=== PATIENT | female | born 1975 | race African-American/Black ===

== ENCOUNTER 2022-11-05 16:20 | Inpatient (IN) ==
[2022-11-05] MEDS ORDERED: NS 1,000 ML IV 1,000 ML ONE (16:24)
[2022-11-05] MEDS ORDERED: ZOFRAN INJ 4 MG VIAL ONE ×2 (16:37→17:23)
[2022-11-05] MEDS ORDERED: NS 1,000 ML IV 1,000 ML IV ONE (16:43)
--- NOTE | 2022-11-05 16:45 | DR.NAUSEAF ---
HPI Time Seen Time Seen by Provider: 11/05/22 16:44 Primary Care Physician Primary Care Physician: Kevin Peña Chief Complaint Doctors Comments: 47 y/o female brought in by EMS for evaluation. Having right sided abdominal pain over the past few days, worsening. Pain os sharp, located R abdomen, does not radiate. Associated with nausea and vomiting today. Denies fever, but has been hot/cold at times. No URI symptoms. Having constipation, decreased urination. Distant h/o cholecystectomy, gastric bypass in the past. Chief Complaint:: pt presents to the ED via EMS with c/o right sided abdominal pain that started this morning. Pt reports assoicated vomiting that only started a few hours ago. Pt denies any fever or diarrhea. Source History Provided: Patient and EMS Mode of Arrival Mode of Arrival: EMS Timing Onset of Chief Complaint: 11/05/22 PMH PMH Past Medical History: Yes Past Medical History: Hypertension Past Medical History Comment: Chronic back pain Past Surgical History: Yes Surgical History: and Cholecystectomy Family History History of Family Medical Conditions: Yes Family Medical History: Coronary Artery Disease and Hypertension Social History Does any household member use tobacco: No Do you use any recreational Drugs:: No Lives With: Family Lives Where: Home Infectious screening In the last 2 months have you had wt loss of >10#?: NO Have you had fever, night sweats or hemotysis?: No Have you traveled outside the country in the last 6 months?: No Isolation: Standard ROS Review of Systems Constitutional: No Symptoms Reported Eyes: No Symptoms Reported ENTM: No Symptoms Reported Respiratoy: No Symptoms Reported Cardiovascular: No Symptoms Reported Gastrointestinal/Abdominal: See HPI Genitourinary: No Symptoms Reported Neurological: No Symptoms Reported Musculoskeletal: No Symptoms Reported Integumentary: No Symptoms Reported Psychiatric: No Symptoms Reported All Other Systems: Reviewed and Negative PE Vital Signs Vitals: Temperature 98.7 F Pulse Rate 69 Respiratory Rate 18 Blood Pressure [Left Arm] 157/89 Blood Pressure 138/85 O2 Sat by Pulse Oximetry 100 General General Appearance: Alert and In No Apparent Distress Eyes Eye exam: PERRL and EOMI ENT ENT Exam: Mucous Membranes Moist Neck Neck Exam: Normal Inspection Respiratory Respiratory Exam: Normal Lung Sounds Bilat; negative Accessory Muscle Use or Respiratory Distress Cardiovascular Cardiovascular Exam: Regular Rate, Normal Rhythm and Normal Heart Sounds Abdominal Exam Abdominal Exam: Normal Bowel Sounds, Soft and Tenderness (epigastric > RUQ, no guarding or rebound ) Extremities Extremities Exam: Normal Inspection; negative Edema Neurologic Neurological Exam: Alert, Oriented X3 and CN II-XII Intact; negative Motor Sensory Deficit Skin Skin Exam: Warm and Dry COURSE Treatment Treatment: Pt with few days of abdominal pain, now with N/V. W/u initiated. Pt given IV fluids, IV zofran. + h/o chronic narcotic therapy for LBP, no pain meds today, Given IV dilaudid. + N/V persisting. Pt given additional IV zofran, plus IV protonix, and additional IV dilaudid. Will pursue a CT of the abd/pelvis. 1828 - persistant vomiting. Given IM phenergan. NG tube placed. CT of the abd/pelvis with changes c/w intussusception of the small bowel, and a partial small bowel obstruction. Recommend admission for further treatment. Consulted with surgery, Dr Wilson, for evaluation. Discussedwith Dr Hernandez, accepts the admission for Dr Brown. ROR Labs Reviewed Result Diagrams: 11/05/22 17:17 11/05/22 17:17 Laboratory: WBC 9.6 X10^3/uL (3.6-10.0) 11/05/22 17:17 RBC 4.54 X10^6/uL (3.5-5.4) 11/05/22 17:17 Hgb 12.4 g/dL (12.0-16.0) 11/05/22 17:17 Hct 38.1 % (36.0-47.0) 11/05/22 17:17 MCV 83.9 fL (80.0-100.0) 11/05/22 17:17 MCH 27.2 pg (27.0-34.0) 11/05/22 17:17 MCHC 32.5 g/dL (33.0-35.0) L 11/05/22 17:17 RDW 15.7 % (11.6-16.5) 11/05/22 17:17 Plt Count 235 X10^3/uL (150.0-450.0) 11/05/22 17:17 MPV 7.8 fL (7.4-11.0) 11/05/22 17:17 Neut % (Auto) 72.4 % (42.0-75.0) 11/05/22 17:17 Lymph % (Auto) 17.5 % (21.0-51.0) L 11/05/22 17:17 Andrew % (Auto) 7.7 % (0.0-13.0) 11/05/22 17:17 Eos % (Auto) 1.5 % (0.9-2.9) 11/05/22 17:17 Baso % (Auto) 0.9 % (0.2-1.0) 11/05/22 17:17 Neut # (Auto) 6.9 x10^3/uL (2.2-4.8) H 11/05/22 17:17 Lymph # (Auto) 1.7 X10^3/uL (1.3-2.9) 11/05/22 17:17 Andrew # (Auto) 0.7 x10^3/uL (0.3-0.8) 11/05/22 17:17 Eos # (Auto) 0.1 x10^3/uL (0.0-0.2) 11/05/22 17:17 Baso # (Auto) 0.1 X10^3/uL (0.0-0.1) 11/05/22 17:17 Absolute Nucleated RBC 0.1 /100WBC 11/05/22 17:17 Sodium 142 mmol/L (136-145) 11/05/22 17:17 Corrected Sodium TNP 11/05/22 17:17 Potassium 3.7 mmol/L (3.5-5.1) 11/05/22 17:17 Chloride 105 mmol/L (98-107) 11/05/22 17:17 Carbon Dioxide 27.4 mmol/L (21-32) 11/05/22 17:17 BUN 9 mg/dL (7-18) 11/05/22 17:17 Creatinine 0.81 mg/dL (0.55-1.02) 11/05/22 17:17 Est GFR (MDRD) Af Amer > 60 (>60) 11/05/22 17:17 Est GFR (MDRD) Non-Af > 60 (>60) 11/05/22 17:17 Glucose 87 mg/dL (65-99) 11/05/22 17:17 Calcium 9.0 mg/dL (8.5-10.1) 11/05/22 17:17 Corrected Calcium TNP 11/05/22 17:17 Total Bilirubin 0.10 mg/dL (0.2-1.0) L 11/05/22 17:17 AST 24 Units/L (15-37) 11/05/22 17:17 ALT 32 Units/L (12-78) 11/05/22 17:17 Alkaline Phosphatase 154 Units/L (46-116) H 11/05/22 17:17 Total Protein 6.6 g/dL (6.4-8.2) 11/05/22 17:17 Albumin 3.8 g/dL (3.4-5.0) 11/05/22 17:17 Globulin 2.8 g/dL (2.5-4.5) 11/05/22 17:17 Albumin/Globulin Ratio 1.4 Ratio (1.1-2.1) 11/05/22 17:17 Lipase 54 Units/L (73-393) L 11/05/22 17:17 Opioid Opioid Risk Tool Age (João box if 16-45): No History of Preadolescent Sexual Abuse: No Total: 0 Total Score Risk Category: Low Risk Copyright: Jacky BARNES predicting aberrant behaviors Discharge Plan Diagnosis Discharge Problem: Intussusception, Small bowel obstruction, partial Discharge Plan Patient Disposition: 09 ADMITTED INPATIENT Condition: Stable Orders to Discharge Patient Discharge Orders: Transfer (Routine); Ordered 11/05/22 Ordered By: Richi Graf
[2022-11-05] MEDS ORDERED: ZOFRAN INJ 4 MG VIAL IVP ONE ×2 (16:46→17:22)
[2022-11-05] MEDS ORDERED: DILAUDID INJ IVP ONE ×2 (16:50→17:35)
[2022-11-05] MEDS ORDERED: DILAUDID INJ ONE ×2 (16:53→17:36)
[2022-11-05] MEDS ORDERED: PROTONIX INJ 40 MG VIAL IVP ONE (17:22)
[2022-11-05] MEDS ORDERED: PROTONIX INJ 40 MG VIAL ONE (17:23)
[2022-11-05 17:27] LABS: BASOPHILS # (AUTO) 0.1 X10^3/uL (0.0-0.1); BASOPHILS % (AUTO) 0.9 % (0.2-1.0); EOSINOPHILS # (AUTO) 0.1 x10^3/uL (0.0-0.2); EOSINOPHILS % (AUTO) 1.5 % (0.9-2.9); HEMATOCRIT 38.1 % (36.0-47.0); HEMOGLOBIN 12.4 g/dL (12.0-16.0); LYMPHOCYTES # (AUTO) 1.7 X10^3/uL (1.3-2.9); LYMPHOCYTES % (AUTO) 17.5 % (21.0-51.0); MEAN CORPUSCULAR HEMOGLOBIN 27.2 pg (27.0-34.0); MEAN CORPUSCULAR HGB CONC 32.5 g/dL (33.0-35.0); MEAN CORPUSCULAR VOLUME 83.9 fL (80.0-100.0); MEAN PLATELET VOLUME 7.8 fL (7.4-11.0); MONOCYTES # (AUTO) 0.7 x10^3/uL (0.3-0.8); MONOCYTES % (AUTO) 7.7 % (0.0-13.0); NEUTROPHILS # (AUTO) 6.9 x10^3/uL (2.2-4.8); NEUTROPHILS % (AUTO) 72.4 % (42.0-75.0); RED BLOOD COUNT 4.54 X10^6/uL (3.5-5.4); RED CELL DISTRIBUTION WIDTH 15.7 % (11.6-16.5); WHITE BLOOD COUNT 9.6 X10^3/uL (3.6-10.0)
[2022-11-05 17:37] LABS: ALANINE AMINOTRANSFERASE 32 Units/L (12-78); ALBUMIN 3.8 g/dL (3.4-5.0); ALKALINE PHOSPHATASE 154 Units/L (46-116); ASPARTATE AMINO TRANSFERASE 24 Units/L (15-37); BLOOD UREA NITROGEN 9 mg/dL (7-18); CARBON DIOXIDE 27.4 mmol/L (21-32); CHLORIDE 105 mmol/L (98-107); CREATININE 0.81 mg/dL (0.55-1.02); LIPASE 54 Units/L (73-393); SODIUM 142 mmol/L (136-145); TOTAL PROTEIN 6.6 g/dL (6.4-8.2); eGFR NON BLACK RACES > 60 (>60)
[2022-11-05] MEDS ORDERED: PHENERGAN INJ 25 MG IM ONE ×2 (18:16)
--- NOTE | 2022-11-05 18:37 | CT ---
HISTORYABDOMINAL PAIN [id number]/PELVIS W/O CONCOMPARISONTECHNIQUEMultiple axial images of the abdomen and pelvis were obtained from the lung bases to the pubic symphysis without the administration of IV contrast. Dose reduction techniques including Automated Exposure Control (AEC) and adjustment of mA and kV were utilized.FINDINGSThe lung bases are clear without effusion. The heart size is normal. The liver is grossly normal. The gallbladder has been removed. The pancreas is atrophic. The spleen is normal. There is no adrenal mass. The kidneys are both normal in size without stone or hydronephrosis. There is postsurgical change in the stomach compatible with a gastric bypass. The afferent small-bowel loop passes anterior to the transverse colon. There is a nonspecific but abnormal appearance to the small bowel suggestive of a intussusception into the dilated loop where the small bowel to small bowel anastomosis occurs. The small bowel is otherwise unremarkable. The appendix is normal. There is stool in the unremarkable large bowel. Urinary bladder and uterus are normal and there is no adnexal mass. There is multilevel disc and facet degeneration. There is also fairly severe hip degeneration.IMPRESSIONAbnormal bowel gas pattern suggestive of intussusception related to the small bowel to small bowel anastomosis which is dilated and allows the intussusception. This may cause some degree of obstruction although the GI tract appears to be relatively decompressed at this time. A small-bowel follow-through may be beneficial.Electronically signed by: Bertrand Martell (Nov 05, 2022 18:36:12)
[2022-11-05] MEDS ORDERED: APRESOLINE INJ 20 MG VIAL IVP ONE (19:25)
[2022-11-05] MEDS ORDERED: APRESOLINE INJ 20 MG VIAL ONE (19:26)
--- NOTE | 2022-11-05 19:32 | RAD ---
EXAM: ABDOMEN X-RAY (or KUB)HISTORY: Nasogastric tube verification status post placement.TECHNIQUE: Supine viewCOMPARISON: None.FINDINGS:Nasogastric tube is noted with the distal tip within the lateral aspect of the proximal to middle of the stomach, approximately 11 cm distal to the gastroesophageal junction, with the proximal sidehole approximately 2 cm distal to the gastroesophageal junction (adequate position).Abundant fecal material is seen within the large bowel loops; nonspecific finding; rule out constipation. The bowel gas pattern is otherwise nonspecific and nonobstructive. There is no gross organomegaly, free intraperitoneal air, or suspicious calcifications seen. The visualized bony structures are within normal limits.IMPRESSION:1. Nasogastric tube is noted with the distal tip within the lateral aspect of the proximal to middle of the stomach, approximately 11 cm distal to the gastroesophageal junction, with the proximal sidehole approximately 2 cm distal to the gastroesophageal junction (adequate position).2. Abundant fecal material is seen within the large bowel loops; nonspecific finding; rule out constipation.Electronically signed by: Gatito Goss (Nov 05, 2022 19:31:31)
[2022-11-05 19:37] LABS: BILIRUBIN,URINE NEGATIVE (NEGATIVE); BLOOD/HEMOGLOBIN,URINE NEGATIVE (NEGATIVE); GLUCOSE, URINE NEGATIVE (NEGATIVE); KETONES,URINE NEGATIVE (NEGATIVE); LEUKOCYTE ESTERASE ,URINE NEGATIVE (NEGATIVE); NITRITES,URINE POSITIVE (NEGATIVE); PROTEIN,URINE NEGATIVE (NEGATIVE); UROBILINOGEN,URINE NORMAL (NORMAL)
[2022-11-05 19:45] LABS: APPEARANCE,URINE SLIGHTLY HAZY (CLEAR); BACTERIA,URINE 4+ /HPF (NEGATIVE); COLOR,URINE PALE YELLOW (YELLOW); RBC,URINE NONE SEEN /HPF (0-3); SQUAMOUS EPITHELIAL CELL,UR RARE /HPF (NEGATIVE)
[2022-11-05] MEDS: D5 1/2 NS 1,000 ML 1,000 ML IV SCH (21:20)
[2022-11-05] MEDS: DILAUDID INJ IVP PRN (21:20)
[2022-11-05] MEDS: ZOFRAN INJ 4 MG VIAL IVP PRN (21:46)
[2022-11-05] MEDS: APRESOLINE INJ 20 MG VIAL IVP PRN ×2 (22:00→22:30)
[2022-11-05 22:11] VITALS: BMI 29.3
[2022-11-06] MEDS: DILAUDID INJ IVP PRN ×5 (01:00→21:23)
[2022-11-06] MEDS: PHENERGAN INJ 25 MG IM PRN ×2 (01:27→09:15)
[2022-11-06] MEDS: D5 1/2 NS 1,000 ML 1,000 ML IV SCH ×4 (04:43→20:54)
[2022-11-06] MEDS: ZOFRAN INJ 4 MG VIAL IVP PRN ×2 (04:43→10:31)
[2022-11-06 06:09] LABS: BASOPHILS # (AUTO) 0.1 X10^3/uL (0.0-0.1); BASOPHILS % (AUTO) 1.1 % (0.2-1.0); EOSINOPHILS % (AUTO) 0.1 % (0.9-2.9); HEMATOCRIT 42.7 % (36.0-47.0); HEMOGLOBIN 14.1 g/dL (12.0-16.0); LYMPHOCYTES # (AUTO) 1.5 X10^3/uL (1.3-2.9); LYMPHOCYTES % (AUTO) 14.6 % (21.0-51.0); MEAN CORPUSCULAR HEMOGLOBIN 27.4 pg (27.0-34.0); MEAN CORPUSCULAR HGB CONC 33.1 g/dL (33.0-35.0); MONOCYTES # (AUTO) 0.8 x10^3/uL (0.3-0.8); MONOCYTES % (AUTO) 7.8 % (0.0-13.0); NEUTROPHILS # (AUTO) 7.9 x10^3/uL (2.2-4.8); NEUTROPHILS % (AUTO) 76.4 % (42.0-75.0); RED BLOOD COUNT 5.15 X10^6/uL (3.5-5.4); RED CELL DISTRIBUTION WIDTH 15.7 % (11.6-16.5); WHITE BLOOD COUNT 10.3 X10^3/uL (3.6-10.0)
[2022-11-06 06:23] LABS: ALANINE AMINOTRANSFERASE 31 Units/L (12-78); ALKALINE PHOSPHATASE 162 Units/L (46-116); ASPARTATE AMINO TRANSFERASE 25 Units/L (15-37); BLOOD UREA NITROGEN 6 mg/dL (7-18); CALCIUM 9.5 mg/dL (8.5-10.1); CARBON DIOXIDE 25.9 mmol/L (21-32); CHLORIDE 102 mmol/L (98-107); COR NA(FOR HYPERGLY) 138 mmol/L (136-145); CREATININE 0.67 mg/dL (0.55-1.02); SODIUM 137 mmol/L (136-145); TOTAL PROTEIN 7.3 g/dL (6.4-8.2); eGFR NON BLACK RACES > 60 (>60)
--- NOTE | 2022-11-06 09:46 | DR.H&P ---
H&P History & Physical for Day of: H&P Date: 11/06/22 Chief Complaint Chief Complaint: Abdominal pain Nausea, Vomiting Allergies Allergies Allergy/AdvReac Type Severity Reaction Status Date / Time lisinopril Allergy Verified 11/05/22 18:16 antihemophilic factor AdvReac Verified 05/27/21 12:50 (FVIII) rec, full length Antihistamines - Alkylamine AdvReac Verified 05/27/21 12:50 Antihistamine & Nasal Allergy Unknown Uncoded 09/12/20 09:12 Deconges History of Present Illness History of Present Illness: Pt is a 47 year old female past medical history Hypertension, Degenerative disc disease, and Anxiety presenting after having acute episode of abdominal pain, nausea, and vomiting. Pt states symptoms occurred suddenly. Denies fevers, chills, diarrhea, constipation. Labs/imaging: Wbc 10.3, Hgb 14.1, Plt 283, Na 137, K 4.1, Creatinine 0.67, Glucose 123, UA c/w infection, Urine culture pending, CT abdomen and pelvis was obtained that revea led: Abnormal bowel gas pattern suggestive of intussusception related to the small bowel to small bowel anastomosis which is dilated and allows the intussusception. This may cause some degree of obstruction although the GI tract appears to be relatively decompressed at this time. Pt was admitted, keep NPO, and NG tube was placed. Continue D5 1/2 NS@125ml/h, IM Promethazine 25mg prn, IV Zofran prn, and Dilaudid 1mg Q4h prn for pain. Order Zosyn for acute cystitis. Consult general surgery-Dr Wilson for further evaluation. Continue to closely monitor and follow up labs/imaging. Past Medical History Past Medical History: Hypertension Past Surgical History Surgical History: Family History Family Medical History: Hypertension Social History Does patient currently use any type of tobacco product: Yes Have you used tobacco products in the last 12 months: Yes Type of Tobacco Use: Cigarettes How many years tobacco product used: 20 Does any household member use tobacco: No Alcohol Use: None Medications Home Medications: lisinopril Allergy (Verified 11/05/22 18:16) antihemophilic factor (FVIII) rec, full length Adverse Reaction (Verified 05/27/21 12:50) Antihistamines - Alkylamine Adverse Reaction (Verified 05/27/21 12:50) Antihistamine & Nasal Deconges Allergy (Unknown, Uncoded 09/12/20 09:12) CONTINUE taking the following medications alprazolam 0.5 mg tablet 0.5 mg PO BID PRN 11/05/22 [History] amlodipine 5 mg tablet 5 mg PO QDAY 11/05/22 [History] xqbeloo-ieektbtuts-TKB-caffeine 30 mg-50 mg-325 mg-40 mg capsule (Ascomp with Codeine) 1 cap PO QDAY PRN 11/05/22 [History] cyclobenzaprine 10 mg tablet 10 mg PO BID PRN 11/05/22 [History] fluticasone propionate 50 mcg/actuation nasal spray,suspension 1 ea intranasal DAILY 11/05/22 [History] gabapentin 300 mg capsule 300 mg PO QDAY 11/05/22 [History] naproxen 500 mg tablet 500 mg PO BID 11/05/22 [History] oxycodone-acetaminophen 10 mg-325 mg tablet 1 tab PO TID PRN 11/05/22 [History] sertraline 100 mg tablet 100 mg PO BID 11/05/22 [History] Labs Result Diagrams: 11/06/22 06:01 11/06/22 06:01 Labs: Laboratory WBC 10.3 X10^3/uL (3.6-10.0) H 11/06/22 06:01 RBC 5.15 X10^6/uL (3.5-5.4) 11/06/22 06:01 Hgb 14.1 g/dL (12.0-16.0) 11/06/22 06:01 Hct 42.7 % (36.0-47.0) 11/06/22 06:01 MCV 83.0 fL (80.0-100.0) 11/06/22 06:01 MCH 27.4 pg (27.0-34.0) 11/06/22 06:01 MCHC 33.1 g/dL (33.0-35.0) 11/06/22 06:01 RDW 15.7 % (11.6-16.5) 11/06/22 06:01 Plt Count 283 X10^3/uL (150.0-450.0) 11/06/22 06:01 MPV 8.0 fL (7.4-11.0) 11/06/22 06:01 Neut % (Auto) 76.4 % (42.0-75.0) H 11/06/22 06:01 Lymph % (Auto) 14.6 % (21.0-51.0) L 11/06/22 06:01 [place] % (Auto) 7.8 % (0.0-13.0) 11/06/22 06:01 Eos % (Auto) 0.1 % (0.9-2.9) L 11/06/22 06:01 Baso % (Auto) 1.1 % (0.2-1.0) H 11/06/22 06:01 Neut # (Auto) 7.9 x10^3/uL (2.2-4.8) H 11/06/22 06:01 Lymph # (Auto) 1.5 X10^3/uL (1.3-2.9) 11/06/22 06:01 [place] # (Auto) 0.8 x10^3/uL (0.3-0.8) 11/06/22 06:01 Eos # (Auto) 0.0 x10^3/uL (0.0-0.2) 11/06/22 06:01 Baso # (Auto) 0.1 X10^3/uL (0.0-0.1) 11/06/22 06:01 Absolute Nucleated RBC 0.0 /100WBC 11/06/22 06:01 Sodium 137 mmol/L (136-145) 11/06/22 06:01 Corrected Sodium 138 mmol/L (136-145) 11/06/22 06:01 Potassium 4.1 mmol/L (3.5-5.1) 11/06/22 06:01 Chloride 102 mmol/L (98-107) 11/06/22 06:01 Carbon Dioxide 25.9 mmol/L (21-32) 11/06/22 06:01 BUN 6 mg/dL (7-18) L 11/06/22 06:01 Creatinine 0.67 mg/dL (0.55-1.02) 11/06/22 06:01 Est GFR (MDRD) Af Amer > 60 (>60) 11/06/22 06:01 Est GFR (MDRD) Non-Af > 60 (>60) 11/06/22 06:01 Glucose 123 mg/dL (65-99) H 11/06/22 06:01 Calcium 9.5 mg/dL (8.5-10.1) 11/06/22 06:01 Corrected Calcium TNP 11/06/22 06:01 Total Bilirubin 0.20 mg/dL (0.2-1.0) 11/06/22 06:01 AST 25 Units/L (15-37) 11/06/22 06:01 ALT 31 Units/L (12-78) 11/06/22 06:01 Alkaline Phosphatase 162 Units/L (46-116) H 11/06/22 06:01 Total Protein 7.3 g/dL (6.4-8.2) 11/06/22 06:01 Albumin 4.0 g/dL (3.4-5.0) 11/06/22 06:01 Globulin 3.3 g/dL (2.5-4.5) 11/06/22 06:01 Albumin/Globulin Ratio 1.2 Ratio (1.1-2.1) 11/06/22 06:01 Lipase 54 Units/L (73-393) L 11/05/22 17:17 Specimen Type Clean catch urine 11/05/22 19:30 Urine Color Pale yellow (YELLOW) 11/05/22 19:30 Urine Appearance Slightly hazy (CLEAR) 11/05/22 19:30 Urine pH 7.0 (5.0 - 8.0) 11/05/22 19:30 Ur Specific [place] 1.015 (1.000-1.030) 11/05/22 19:30 Urine Protein Negative (NEGATIVE) 11/05/22 19:30 Urine Glucose (UA) Negative (NEGATIVE) 11/05/22 19:30 Urine Ketones Negative (NEGATIVE) 11/05/22 19:30 Urine Blood Negative (NEGATIVE) 11/05/22 19:30 Urine Nitrite Positive (NEGATIVE) 11/05/22 19:30 Urine Bilirubin Negative (NEGATIVE) 11/05/22 19:30 Urine Urobilinogen Normal (NORMAL) 11/05/22 19:30 Ur Leukocyte Esterase Negative (NEGATIVE) 11/05/22 19:30 Urine RBC None seen /HPF (0-3) 04/04/23 19:30 Urine WBC None seen /HPF (0-5) 11/05/22 19:30 Ur Squamous Epith Cells Rare /HPF (NEGATIVE) 11/05/22 19:30 Urine Bacteria 4+ /HPF (NEGATIVE) 11/05/22 19:30 Ur Culture Indicated? Yes/culture set up 11/05/22 19:30 Review of Systems Constitutional: No Symptoms Reported Eyes: No Symptoms Reported ENT: No Symptoms Reported Respiratory: No Symptoms Reported Cardiovascular: No Symptoms Reported Gastrointestinal: Nausea, Vomiting and Abdominal Pain Genitourinary: No Symptoms Reported Musculoskeletal: No Symptoms Reported Skin: No Symptoms Reported Neurological: No Symptoms Reported Physical Exam Vital Signs: Temperature 98.8 F Pulse Rate [Left Radial] 78 Pulse Rate 69 Respiratory Rate 21 Blood Pressure [Right Arm] 178/82 Blood Pressure [Left Arm] 162/89 Blood Pressure 148/89 O2 Sat by Pulse Oximetry 100 Oriented: Normal Eyes: Normal Ear: Normal Nose: Normal Throat: Normal Respiratory: Clear Throughout Cardiovascular: Normal : Normal Auscultation: Bowel Sounds: Normal Palpation: Normal Tenderness: Diffuse Skin: Normal Musculoskeletal: Normal Psychiatric: Normal Mood Description: Calm and Appropriate Affect: Normal Speech Pattern: Clear and Appropriate Assessment/Plan (1) Intussusception: Status: Acute Plan: Consult general surgery NPO, IVF, NG-tube (2) Small bowel obstruction, partial: Status: Acute (3) UTI (urinary tract infection): Qualifiers: Hematuria presence: without hematuria Urinary tract infection type: acute cystitis Qualified Code(s): N30.00 - Acute cystitis without hematuria Status: Acute Plan: Urine culture pending IV Zosyn Review H&P Reviewed: Yes Patient was examined?: Yes
[2022-11-06] MEDS ORDERED: NS 100 ML IV 100 ML ONE (10:10)
--- NOTE | 2022-11-06 11:29 | RAD ---
HISTORYNG TUBE PLACEMENT.br Relevant Clinical [id number]/04/2023 .br.br.br.br gas pattern. There is a moderate amount of fecal material throughout the colon. Surgical clips in right upper quadrant. The upper abdomen is and lower chest was not included on the abdominal film. No nasogastric tube is identified. No pathological soft tissue mass or calcification can be observed. The bony structures are grossly intact.IMPRESSIONNo evidence for acute abdominal pathology identified.No NG tube identified.Electronically signed by: Zane Carr (Nov 06, 2022 11:21:17)
[2022-11-06] MEDS: ZOSYN VIAL 3.375 GRAMS 3.375 G in NS 100 ML IV 100 ML IV SCH ×3 (12:44→21:01)
--- NOTE | 2022-11-06 14:10 | RAD ---
HISTORYNG TUBE PLACEMENT Relevant Clinical [id number]/05/2023 .br.br.br.br dilated loops of small bowel suggesting obstruction or ileus. Nasogastric tube is now seen with its tip in the distal esophagus. The tube should be advanced at least 12 cm for more optimal placement. No pathological soft tissue mass or calcification can be observed. The bony structures are grossly intact.IMPRESSIONNG tube tip in the distal esophagus. The tube should be advanced into the stomach for more optimal placement.Multiple dilated loops of small bowel suggesting obstruction or ileus.Electronically signed by: Zane Carr (Nov 06, 2022 14:08:56)
[2022-11-06] MEDS: APRESOLINE INJ 20 MG VIAL IVP PRN (16:37)
[2022-11-06] MEDS: PROTONIX INJ 40 MG VIAL IVP SCH (21:01)
[2022-11-06] MEDS: OFIRMEV IV 1000 MG VIAL 1,000 MG/100 ML VIAL IV PRN (23:34)
[2022-11-07] MEDS: DILAUDID INJ IVP PRN ×4 (01:59→22:49)
[2022-11-07] MEDS: D5 1/2 NS 1,000 ML 1,000 ML IV SCH ×4 (02:26→22:29)
[2022-11-07] MEDS: ZOSYN VIAL 3.375 GRAMS 3.375 G in NS 100 ML IV 100 ML IV SCH ×3 (05:25→21:07)
[2022-11-07] MEDS: ZOFRAN INJ 4 MG VIAL IVP PRN (05:56)
[2022-11-07 06:26] LABS: BASOPHILS % (AUTO) 0.4 % (0.2-1.0); EOSINOPHILS # (AUTO) 0.1 x10^3/uL (0.0-0.2); EOSINOPHILS % (AUTO) 0.8 % (0.9-2.9); HEMATOCRIT 35.4 % (36.0-47.0); HEMOGLOBIN 11.5 g/dL (12.0-16.0); LYMPHOCYTES # (AUTO) 2.4 X10^3/uL (1.3-2.9); LYMPHOCYTES % (AUTO) 24.8 % (21.0-51.0); MEAN CORPUSCULAR HEMOGLOBIN 26.9 pg (27.0-34.0); MEAN CORPUSCULAR HGB CONC 32.3 g/dL (33.0-35.0); MEAN CORPUSCULAR VOLUME 83.3 fL (80.0-100.0); MEAN PLATELET VOLUME 8.3 fL (7.4-11.0); MONOCYTES # (AUTO) 1.2 x10^3/uL (0.3-0.8); MONOCYTES % (AUTO) 12.2 % (0.0-13.0); NEUTROPHILS # (AUTO) 5.9 x10^3/uL (2.2-4.8); NEUTROPHILS % (AUTO) 61.8 % (42.0-75.0); RED BLOOD COUNT 4.25 X10^6/uL (3.5-5.4); RED CELL DISTRIBUTION WIDTH 15.4 % (11.6-16.5); WHITE BLOOD COUNT 9.5 X10^3/uL (3.6-10.0)
[2022-11-07 06:36] LABS: ALANINE AMINOTRANSFERASE 23 Units/L (12-78); ALBUMIN 3.3 g/dL (3.4-5.0); ALKALINE PHOSPHATASE 124 Units/L (46-116); ASPARTATE AMINO TRANSFERASE 22 Units/L (15-37); BLOOD UREA NITROGEN 5 mg/dL (7-18); CALCIUM 8.8 mg/dL (8.5-10.1); CARBON DIOXIDE 26.7 mmol/L (21-32); CHLORIDE 106 mmol/L (98-107); COR CA(FOR HYPOALB) 9.4 mg/dL (8.5-10.1); CREATININE 0.66 mg/dL (0.55-1.02); SODIUM 140 mmol/L (136-145); TOTAL PROTEIN 6.2 g/dL (6.4-8.2); eGFR NON BLACK RACES > 60 (>60)
[2022-11-07] MEDS: PHENERGAN INJ 25 MG IM PRN (07:03)
--- NOTE | 2022-11-07 08:16 | DR.PROGNOT ---
HOSPITAL PROGRESS NOTE Progress Note for Day of: Progress Note Date: 11/07/22 Chief Complaint Chief Complaint: still c/o RT side abdominal pain . was vomiting around the NGT . X Ray still showing partial SBO . WBC normal . afebrile Past Medical Family Social History Past Med/Fam/Surg Hx: No changes since H&P Allergies: Allergies lisinopril Allergy (Verified 11/05/22 18:16) antihemophilic factor (FVIII) rec, full length Adverse Reaction (Verified 05/27/21 12:50) Antihistamines - Alkylamine Adverse Reaction (Verified 05/27/21 12:50) Antihistamine & Nasal Deconges Allergy (Unknown, Uncoded 09/12/20 09:12) Reason: Drug allergy; Free Text Allergy: Antihistamine & Nasal Deconges *COUGH/COLD/ALLERGY* Vital Signs Vital Signs: Temperature 98.9 F Pulse Rate [Left Radial] 70 Pulse Rate 69 Respiratory Rate 17 Blood Pressure [Right Arm] 151/84 Blood Pressure [Left Arm] 162/89 Blood Pressure 148/89 O2 Sat by Pulse Oximetry 98 Physical Exam Oriented: Normal Eyes: Normal Ear: Normal Nose: Normal Throat: Normal Cardiovascular: Normal : Normal GI:Auscultation: Normal GI:Palpation: Normal GI: Tenderness: Diffuse (soft , flat abdomen with moderate RT side tenderness ) Skin: Normal Musculoskeletal: Normal Psychiatric: Normal Mood Description: Calm and Appropriate Affect: Normal Speech Pattern: Clear and Appropriate Laboratory and Diagnostics Result Diagrams: 11/07/22 05:15 11/07/22 05:15 Labs: 11/05/22 19:30 Urine,Clean Catch Urine Culture - Preliminary Laboratory WBC 9.5 X10^3/uL (3.6-10.0) 11/07/22 05:15 RBC 4.25 X10^6/uL (3.5-5.4) 11/07/22 05:15 Hgb 11.5 g/dL (12.0-16.0) L D 11/07/22 05:15 Hct 35.4 % (36.0-47.0) L 11/07/22 05:15 MCV 83.3 fL (80.0-100.0) 11/07/22 05:15 MCH 26.9 pg (27.0-34.0) L 11/07/22 05:15 MCHC 32.3 g/dL (33.0-35.0) L 11/07/22 05:15 RDW 15.4 % (11.6-16.5) 11/07/22 05:15 Plt Count 236 X10^3/uL (150.0-450.0) 11/07/22 05:15 MPV 8.3 fL (7.4-11.0) 11/07/22 05:15 Neut % (Auto) 61.8 % (42.0-75.0) 11/07/22 05:15 Lymph % (Auto) 24.8 % (21.0-51.0) 11/07/22 05:15 [place] % (Auto) 12.2 % (0.0-13.0) 11/07/22 05:15 Eos % (Auto) 0.8 % (0.9-2.9) L 11/07/22 05:15 Baso % (Auto) 0.4 % (0.2-1.0) 11/07/22 05:15 Neut # (Auto) 5.9 x10^3/uL (2.2-4.8) H 11/07/22 05:15 Lymph # (Auto) 2.4 X10^3/uL (1.3-2.9) 11/07/22 05:15 [place] # (Auto) 1.2 x10^3/uL (0.3-0.8) H 11/07/22 05:15 Eos # (Auto) 0.1 x10^3/uL (0.0-0.2) 11/07/22 05:15 Baso # (Auto) 0.0 X10^3/uL (0.0-0.1) 11/07/22 05:15 Absolute Nucleated RBC 0.1 /100WBC 11/07/22 05:15 Sodium 140 mmol/L (136-145) 11/07/22 05:15 Corrected Sodium TNP 11/07/22 05:15 Potassium 3.4 mmol/L (3.5-5.1) L 11/07/22 05:15 Chloride 106 mmol/L (98-107) 11/07/22 05:15 Carbon Dioxide 26.7 mmol/L (21-32) 11/07/22 05:15 BUN 5 mg/dL (7-18) L 11/07/22 05:15 Creatinine 0.66 mg/dL (0.55-1.02) 11/07/22 05:15 Est GFR (MDRD) Af Amer > 60 (>60) 11/07/22 05:15 Est GFR (MDRD) Non-Af > 60 (>60) 11/07/22 05:15 Glucose 91 mg/dL (65-99) 11/07/22 05:15 Calcium 8.8 mg/dL (8.5-10.1) 11/07/22 05:15 Corrected Calcium 9.4 mg/dL (8.5-10.1) 11/07/22 05:15 Total Bilirubin 0.20 mg/dL (0.2-1.0) 11/07/22 05:15 AST 22 Units/L (15-37) 11/07/22 05:15 ALT 23 Units/L (12-78) 11/07/22 05:15 Alkaline Phosphatase 124 Units/L (46-116) H 11/07/22 05:15 Total Protein 6.2 g/dL (6.4-8.2) L 11/07/22 05:15 Albumin 3.3 g/dL (3.4-5.0) L 11/07/22 05:15 Globulin 2.9 g/dL (2.5-4.5) 11/07/22 05:15 Albumin/Globulin Ratio 1.1 Ratio (1.1-2.1) 11/07/22 05:15 Lipase 54 Units/L (73-393) L 11/05/22 17:17 Specimen Type Clean catch urine 11/05/22 19:30 Urine Color Pale yellow (YELLOW) 11/05/22 19:30 Urine Appearance Slightly hazy (CLEAR) 11/05/22 19:30 Urine pH 7.0 (5.0 - 8.0) 11/05/22 19:30 Ur Specific [place] 1.015 (1.000-1.030) 11/05/22 19:30 Urine Protein Negative (NEGATIVE) 11/05/22 19:30 Urine Glucose (UA) Negative (NEGATIVE) 11/05/22 19:30 Urine Ketones Negative (NEGATIVE) 11/05/22 19:30 Urine Blood Negative (NEGATIVE) 11/05/22 19:30 Urine Nitrite Positive (NEGATIVE) 11/05/22 19:30 Urine Bilirubin Negative (NEGATIVE) 11/05/22 19:30 Urine Urobilinogen Normal (NORMAL) 11/05/22 19:30 Ur Leukocyte Esterase Negative (NEGATIVE) 11/05/22 19:30 Urine RBC None seen /HPF (0-3) 11/05/22 19:30 Urine WBC None seen /HPF (0-5) 11/05/22 19:30 Ur Squamous Epith Cells Rare /HPF (NEGATIVE) 11/05/22 19:30 Urine Bacteria 4+ /HPF (NEGATIVE) 11/05/22 19:30 Ur Culture Indicated? Yes/culture set up 11/05/22 19:30 Assessment and Plan 1: partial SBO . abdominal adhesions . same observation , NGT, IVF , pain control . KUB in am . Problem Patient Problems: Patient Problems (Updated 11/05/22 @ 18:56 by Richi Graf) Intussusception (Acute) K56.1 Small bowel obstruction, partial (Acute) K56.600
[2022-11-07] MEDS: PROTONIX INJ 40 MG VIAL IVP SCH ×2 (08:28→21:08)
[2022-11-07] MEDS: OFIRMEV IV 1000 MG VIAL 1,000 MG/100 ML VIAL IV PRN (08:31)
[2022-11-07] MEDS ORDERED: POTASSIUM CHLORIDE LIQ 20 MEQ UDC PO PRN (09:54)
[2022-11-07] MEDS ORDERED: KLOR-CON PO PRN (09:54)
[2022-11-07] MEDS ORDERED: K-RIDER 10 MEQ/NS 100 ML 10 MEQ/100 ML BAG IV PRN (09:54)
--- NOTE | 2022-11-07 10:24 | RAD ---
HISTORYNGT, PARTIAL SBO Relevant Clinical [id number]/05/2023 .br.br.br.br gas pattern. There is a moderate amount of fecal material throughout the colon. Nasogastric tube is present with its tip in the proximal stomach. There are surgical clips noted in the right upper quadrant of the abdomen. No pathological soft tissue mass or calcification can be observed. The bony structures are grossly intact.IMPRESSIONNG tube tip within the proximal stomach.Nonobstructive abdominal bowel gas patternElectronically signed by: Zane Carr (Nov 07, 2022 10:22:47)
[2022-11-07] MEDS: MAGNESIUM SULFATE 1 GRAM/100 mL PREMIX 1 G/100 ML BAG IV PRN ×2 (10:46→12:24)
[2022-11-07] MEDS: APRESOLINE INJ 20 MG VIAL IVP PRN (12:23)
[2022-11-07] MEDS: K-DUR TAB 20 MEQ PO PRN (12:23)
[2022-11-07] MEDS: TYLENOL 325 MG TAB PO PRN (13:39)
[2022-11-08] MEDS: D5 1/2 NS 1,000 ML 1,000 ML IV SCH ×2 (04:09→13:16)
[2022-11-08] MEDS: DILAUDID INJ IVP PRN (04:32)
[2022-11-08] MEDS: ZOSYN VIAL 3.375 GRAMS 3.375 G in NS 100 ML IV 100 ML IV SCH (05:01)
[2022-11-08 06:42] LABS: BASOPHILS % (AUTO) 0.4 % (0.2-1.0); EOSINOPHILS # (AUTO) 0.2 x10^3/uL (0.0-0.2); EOSINOPHILS % (AUTO) 2.6 % (0.9-2.9); HEMATOCRIT 32.6 % (36.0-47.0); HEMOGLOBIN 10.8 g/dL (12.0-16.0); LYMPHOCYTES # (AUTO) 2.2 X10^3/uL (1.3-2.9); LYMPHOCYTES % (AUTO) 36.7 % (21.0-51.0); MEAN CORPUSCULAR HEMOGLOBIN 27.5 pg (27.0-34.0); MEAN CORPUSCULAR HGB CONC 33.1 g/dL (33.0-35.0); MEAN CORPUSCULAR VOLUME 83.1 fL (80.0-100.0); MEAN PLATELET VOLUME 8.3 fL (7.4-11.0); MONOCYTES # (AUTO) 0.7 x10^3/uL (0.3-0.8); MONOCYTES % (AUTO) 11.4 % (0.0-13.0); NEUTROPHILS # (AUTO) 2.9 x10^3/uL (2.2-4.8); NEUTROPHILS % (AUTO) 48.9 % (42.0-75.0); RED BLOOD COUNT 3.92 X10^6/uL (3.5-5.4); WHITE BLOOD COUNT 5.9 X10^3/uL (3.6-10.0)
[2022-11-08 06:55] LABS: ALANINE AMINOTRANSFERASE 33 Units/L (12-78); ALBUMIN 3.1 g/dL (3.4-5.0); ALKALINE PHOSPHATASE 118 Units/L (46-116); ASPARTATE AMINO TRANSFERASE 26 Units/L (15-37); BLOOD UREA NITROGEN 5 mg/dL (7-18); CALCIUM 8.5 mg/dL (8.5-10.1); CARBON DIOXIDE 27.4 mmol/L (21-32); CHLORIDE 107 mmol/L (98-107); COR CA(FOR HYPOALB) 9.2 mg/dL (8.5-10.1); CREATININE 0.74 mg/dL (0.55-1.02); SODIUM 141 mmol/L (136-145); TOTAL PROTEIN 5.8 g/dL (6.4-8.2); eGFR NON BLACK RACES > 60 (>60)
[2022-11-08] MEDS: TYLENOL 325 MG TAB PO PRN (08:18)
[2022-11-08] MEDS: K-DUR TAB 20 MEQ PO PRN (08:19)
[2022-11-08] MEDS: PROTONIX INJ 40 MG VIAL IVP SCH (08:19)
[2022-11-08] MEDS ORDERED: MILK OF MAGNESIA PO ONE (08:40)
--- NOTE | 2022-11-08 09:16 | PCM.PROG ---
Progress Note Progress Note for Day of Date of Exam: 11/07/22 Subjective Subjective: Pt is a 47 year old female past medical history Hypertension, Degenerative disc disease, and Anxiety admitted for small bowel obstruction. This morning she reports feeling better, improvement in nausea and abdominal pain. Labs/imaging: Wbc 9.5, Hgb 11.5, Plt 236, Na 140, K 3.4, Creatinine 0.66, Glucose 91, UA c/w infection, Urine culture pending. KUB: nonobstructive abdominal bowel gas pattern. Will remove NG-Tube and start on clear liquid diet. Continue D5 1/2 NS@125ml/h, IM Promethazine 25mg prn, IV Zofran prn, and Dilaudid 1mg Q4h prn for pain, Zosyn for acute cystitis. General surgery following. Continue to closely monitor and follow up labs/imaging. Past Medical Family Social History Past Med/Fam/Surg Hx: No changes since H&P Allergies: Allergies lisinopril Allergy (Verified 11/05/22 18:16) antihemophilic factor (FVIII) rec, full length Adverse Reaction (Verified 05/27/21 12:50) Antihistamines - Alkylamine Adverse Reaction (Verified 05/27/21 12:50) Antihistamine & Nasal Deconges Allergy (Unknown, Uncoded 09/12/20 09:12) Reason: Drug allergy; Free Text Allergy: Antihistamine & Nasal Deconges *COUGH/COLD/ALLERGY* Review of Systems ROS changes noted: See HPI Vital Signs and I&O's Vital Signs: Temperature 98.6 F Pulse Rate [Left Radial] 72 Pulse Rate 69 Respiratory Rate 18 Blood Pressure [Right Arm] 118/74 Blood Pressure [Left Arm] 162/89 Blood Pressure 148/89 O2 Sat by Pulse Oximetry 98 Intake and Output: Intake & Output 11/05/22 11/06/22 11/07/22 11/08/22 23:59 23:59 23:59 23:59 Intake Total 1000 / 1000 4332 / 4332 3330 / 3330 1580 / 1580 Output Total 50 / 50 220 / 220 25 / 25 Balance 950 / 950 4112 / 4112 3305 / 3305 1580 / 1580 Physical Exam Oriented: Normal Eyes: Normal Ear: Normal Nose: Normal Throat: Normal Respiratory: Normal Cardiovascular: Normal : Normal Auscultation: Bowel Sounds: Normal Palpation: Normal Tenderness: Diffuse (soft , flat abdomen with moderate RT side tenderness ) Skin: Normal Musculoskeletal: Normal Psychiatric: Normal Mood Description: Calm and Appropriate Affect: Normal Speech Pattern: Clear and Appropriate Laboratory and Diagnostics Result Diagrams: 11/08/22 05:47 11/08/22 05:47 Labs: 11/06/22 17:04 Blood Blood Culture - Preliminary 11/06/22 16:51 Blood Blood Culture - Preliminary 11/05/22 19:30 Urine,Clean Catch Urine Culture - Final Escherichia Coli Laboratory WBC 5.9 X10^3/uL (3.6-10.0) 11/08/22 05:47 RBC 3.92 X10^6/uL (3.5-5.4) 11/08/22 05:47 Hgb 10.8 g/dL (12.0-16.0) L 11/08/22 05:47 Hct 32.6 % (36.0-47.0) L 11/08/22 05:47 MCV 83.1 fL (80.0-100.0) 11/08/22 05:47 MCH 27.5 pg (27.0-34.0) 11/08/22 05:47 MCHC 33.1 g/dL (33.0-35.0) 11/08/22 05:47 RDW 15.0 % (11.6-16.5) 11/08/22 05:47 Plt Count 213 X10^3/uL (150.0-450.0) 11/08/22 05:47 MPV 8.3 fL (7.4-11.0) 11/08/22 05:47 Neut % (Auto) 48.9 % (42.0-75.0) 11/08/22 05:47 Lymph % (Auto) 36.7 % (21.0-51.0) 11/08/22 05:47 [place] % (Auto) 11.4 % (0.0-13.0) 11/08/22 05:47 Eos % (Auto) 2.6 % (0.9-2.9) 11/08/22 05:47 Baso % (Auto) 0.4 % (0.2-1.0) 11/08/22 05:47 Neut # (Auto) 2.9 x10^3/uL (2.2-4.8) 11/08/22 05:47 Lymph # (Auto) 2.2 X10^3/uL (1.3-2.9) 11/08/22 05:47 [place] # (Auto) 0.7 x10^3/uL (0.3-0.8) 11/08/22 05:47 Eos # (Auto) 0.2 x10^3/uL (0.0-0.2) 11/08/22 05:47 Baso # (Auto) 0.0 X10^3/uL (0.0-0.1) 11/08/22 05:47 Absolute Nucleated RBC 0.1 /100WBC 11/08/22 05:47 Sodium 141 mmol/L (136-145) 11/08/22 05:47 Corrected Sodium TNP 11/08/22 05:47 Potassium 3.5 mmol/L (3.5-5.1) 11/08/22 05:47 Chloride 107 mmol/L (98-107) 11/08/22 05:47 Carbon Dioxide 27.4 mmol/L (21-32) 11/08/22 05:47 BUN 5 mg/dL (7-18) L 11/08/22 05:47 Creatinine 0.74 mg/dL (0.55-1.02) 11/08/22 05:47 Est GFR (MDRD) Af Amer > 60 (>60) 11/08/22 05:47 Est GFR (MDRD) Non-Af > 60 (>60) 11/08/22 05:47 Glucose 85 mg/dL (65-99) 11/08/22 05:47 Calcium 8.5 mg/dL (8.5-10.1) 11/08/22 05:47 Corrected Calcium 9.2 mg/dL (8.5-10.1) 11/08/22 05:47 Magnesium 2.0 mg/dL (2.0-2.9) 11/08/22 05:47 Total Bilirubin 0.20 mg/dL (0.2-1.0) 11/08/22 05:47 AST 26 Units/L (15-37) 11/08/22 05:47 ALT 33 Units/L (12-78) 11/08/22 05:47 Alkaline Phosphatase 118 Units/L (46-116) H 11/08/22 05:47 Total Protein 5.8 g/dL (6.4-8.2) L 11/08/22 05:47 Albumin 3.1 g/dL (3.4-5.0) L 11/08/22 05:47 Globulin 2.7 g/dL (2.5-4.5) 11/08/22 05:47 Albumin/Globulin Ratio 1.1 Ratio (1.1-2.1) 11/08/22 05:47 Lipase 54 Units/L (73-393) L 11/05/22 17:17 Specimen Type Clean catch urine 11/05/22 19:30 Urine Color Pale yellow (YELLOW) 11/05/22 19:30 Urine Appearance Slightly hazy (CLEAR) 11/05/22 19:30 Urine pH 7.0 (5.0 - 8.0) 11/05/22 19:30 Ur Specific [place] 1.015 (1.000-1.030) 11/05/22 19:30 Urine Protein Negative (NEGATIVE) 11/05/22 19:30 Urine Glucose (UA) Negative (NEGATIVE) 11/05/22 19:30 Urine Ketones Negative (NEGATIVE) 11/05/22 19:30 Urine Blood Negative (NEGATIVE) 11/05/22 19:30 Urine Nitrite Positive (NEGATIVE) 11/05/22 19:30 Urine Bilirubin Negative (NEGATIVE) 11/05/22 19:30 Urine Urobilinogen Normal (NORMAL) 11/05/22 19:30 Ur Leukocyte Esterase Negative (NEGATIVE) 11/05/22 19:30 Urine RBC None seen /HPF (0-3) 11/05/22 19:30 Urine WBC None seen /HPF (0-5) 11/05/22 19:30 Ur Squamous Epith Cells Rare /HPF (NEGATIVE) 11/05/22 19:30 Urine Bacteria 4+ /HPF (NEGATIVE) 11/05/22 19:30 Ur Culture Indicated? Yes/culture set up 11/05/22 19:30 Plan (1) Small bowel obstruction, partial: Status: Acute Narrative Support Text: General surgery following (2) UTI (urinary tract infection): Status: Acute Qualifiers: Hematuria presence: without hematuria Urinary tract infection type: acute cystitis Qualified Code(s): N30.00 - Acute cystitis without hematuria Plan: Urine culture pending IV Zosyn
--- NOTE | 2022-11-08 09:50 | RAD ---
HISTORYSmall bowel obstructionSTUDYKUBCOMPARISON6 November 2022FINDINGSAbdominal gas pattern is nonspecific and nonobstructive. No abnormal masses or abnormal calcifications are identified. Regional skeleton is intact. Nasogastric tube is no longer identified.IMPRESSIONUnremarkable KUBElectronically signed by: FRANCHESKA MIR (Nov 08, 2022 09:49:30)
--- NOTE | 2022-11-08 10:53 | DR.PROGNOT ---
HOSPITAL PROGRESS NOTE Progress Note for Day of: Progress Note Date: 11/08/22 Chief Complaint Chief Complaint: still having RT side abdominal pain , constipated but passing flatus . KUB was read as normal . was nauseated , no vomiting . WBC normal . afebrile . Past Medical Family Social History Past Med/Fam/Surg Hx: No changes since H&P Allergies: Allergies lisinopril Allergy (Verified 11/05/22 18:16) antihemophilic factor (FVIII) rec, full length Adverse Reaction (Verified 05/27/21 12:50) Antihistamines - Alkylamine Adverse Reaction (Verified 05/27/21 12:50) Antihistamine & Nasal Deconges Allergy (Unknown, Uncoded 09/12/20 09:12) Reason: Drug allergy; Free Text Allergy: Antihistamine & Nasal Deconges *COUGH/COLD/ALLERGY* Review Of Systems Changes in ROS: See HPI Vital Signs Vital Signs: Temperature 98.2 F Pulse Rate [Left Radial] 63 Pulse Rate 69 Respiratory Rate 17 Blood Pressure [Right Arm] 146/93 Blood Pressure [Left Arm] 162/89 Blood Pressure 148/89 O2 Sat by Pulse Oximetry 95 Physical Exam Oriented: Normal Eyes: Normal Ear: Normal Nose: Normal Throat: Normal Respiratory: Normal Cardiovascular: Normal : Normal GI:Auscultation: Normal GI:Palpation: Normal GI: Tenderness: Diffuse (soft , flat abdomen with moderate RT side tenderness , BS+) Skin: Normal Musculoskeletal: Normal Psychiatric: Normal Mood Description: Calm and Appropriate Affect: Normal Speech Pattern: Clear and Appropriate Laboratory and Diagnostics Result Diagrams: 11/08/22 05:47 11/08/22 05:47 Labs: 11/06/22 17:04 Blood Blood Culture - Preliminary 11/06/22 16:51 Blood Blood Culture - Preliminary 11/05/22 19:30 Urine,Clean Catch Urine Culture - Final Escherichia Coli Laboratory WBC 5.9 X10^3/uL (3.6-10.0) 11/08/22 05:47 RBC 3.92 X10^6/uL (3.5-5.4) 11/08/22 05:47 Hgb 10.8 g/dL (12.0-16.0) L 11/08/22 05:47 Hct 32.6 % (36.0-47.0) L 11/08/22 05:47 MCV 83.1 fL (80.0-100.0) 11/08/22 05:47 MCH 27.5 pg (27.0-34.0) 11/08/22 05:47 MCHC 33.1 g/dL (33.0-35.0) 11/08/22 05:47 RDW 15.0 % (11.6-16.5) 11/08/22 05:47 Plt Count 213 X10^3/uL (150.0-450.0) 11/08/22 05:47 MPV 8.3 fL (7.4-11.0) 11/08/22 05:47 Neut % (Auto) 48.9 % (42.0-75.0) 11/08/22 05:47 Lymph % (Auto) 36.7 % (21.0-51.0) 11/08/22 05:47 [place] % (Auto) 11.4 % (0.0-13.0) 11/08/22 05:47 Eos % (Auto) 2.6 % (0.9-2.9) 11/08/22 05:47 Baso % (Auto) 0.4 % (0.2-1.0) 11/08/22 05:47 Neut # (Auto) 2.9 x10^3/uL (2.2-4.8) 11/08/22 05:47 Lymph # (Auto) 2.2 X10^3/uL (1.3-2.9) 11/08/22 05:47 [place] # (Auto) 0.7 x10^3/uL (0.3-0.8) 11/08/22 05:47 Eos # (Auto) 0.2 x10^3/uL (0.0-0.2) 11/08/22 05:47 Baso # (Auto) 0.0 X10^3/uL (0.0-0.1) 11/08/22 05:47 Absolute Nucleated RBC 0.1 /100WBC 11/08/22 05:47 Sodium 141 mmol/L (136-145) 11/08/22 05:47 Corrected Sodium TNP 11/08/22 05:47 Potassium 3.5 mmol/L (3.5-5.1) 11/08/22 05:47 Chloride 107 mmol/L (98-107) 11/08/22 05:47 Carbon Dioxide 27.4 mmol/L (21-32) 11/08/22 05:47 BUN 5 mg/dL (7-18) L 11/08/22 05:47 Creatinine 0.74 mg/dL (0.55-1.02) 11/08/22 05:47 Est GFR (MDRD) Af Amer > 60 (>60) 11/08/22 05:47 Est GFR (MDRD) Non-Af > 60 (>60) 11/08/22 05:47 Glucose 85 mg/dL (65-99) 11/08/22 05:47 Calcium 8.5 mg/dL (8.5-10.1) 11/08/22 05:47 Corrected Calcium 9.2 mg/dL (8.5-10.1) 11/08/22 05:47 Magnesium 2.0 mg/dL (2.0-2.9) 11/08/22 05:47 Total Bilirubin 0.20 mg/dL (0.2-1.0) 11/08/22 05:47 AST 26 Units/L (15-37) 11/08/22 05:47 ALT 33 Units/L (12-78) 11/08/22 05:47 Alkaline Phosphatase 118 Units/L (46-116) H 11/08/22 05:47 Total Protein 5.8 g/dL (6.4-8.2) L 11/08/22 05:47 Albumin 3.1 g/dL (3.4-5.0) L 11/08/22 05:47 Globulin 2.7 g/dL (2.5-4.5) 11/08/22 05:47 Albumin/Globulin Ratio 1.1 Ratio (1.1-2.1) 11/08/22 05:47 Lipase 54 Units/L (73-393) L 11/05/22 17:17 Specimen Type Clean catch urine 11/05/22 19:30 Urine Color Pale yellow (YELLOW) 11/05/22 19:30 Urine Appearance Slightly hazy (CLEAR) 11/05/22 19:30 Urine pH 7.0 (5.0 - 8.0) 11/05/22 19:30 Ur Specific [place] 1.015 (1.000-1.030) 11/05/22 19:30 Urine Protein Negative (NEGATIVE) 11/05/22 19:30 Urine Glucose (UA) Negative (NEGATIVE) 11/05/22 19:30 Urine Ketones Negative (NEGATIVE) 11/05/22 19:30 Urine Blood Negative (NEGATIVE) 11/05/22 19:30 Urine Nitrite Positive (NEGATIVE) 11/05/22 19:30 Urine Bilirubin Negative (NEGATIVE) 11/05/22 19:30 Urine Urobilinogen Normal (NORMAL) 11/05/22 19:30 Ur Leukocyte Esterase Negative (NEGATIVE) 11/05/22 19:30 Urine RBC None seen /HPF (0-3) 11/05/22 19:30 Urine WBC None seen /HPF (0-5) 11/05/22 19:30 Ur Squamous Epith Cells Rare /HPF (NEGATIVE) 11/05/22 19:30 Urine Bacteria 4+ /HPF (NEGATIVE) 11/05/22 19:30 Ur Culture Indicated? Yes/culture set up 11/05/22 19:30 Assessment and Plan 1: resolved partial SBO . abdominal adhesions . could be D/C and will follow in 2 weeks on bentyl 10 q 8 h . colace 100 BID Problem Patient Problems: Patient Problems (Updated 11/05/22 @ 18:56 by Richi Graf) Intussusception (Acute) K56.1 Small bowel obstruction, partial (Acute) K56.600
[2022-11-08 13:15] VITALS: BP 139/84
--- NOTE | 2022-11-12 16:37 | W.DIS.FURT ---
Summary of Discharge Discharge Summary of Date Date of Exam: 11/08/22 Admission Date Date of Admission: 11/05/22 Admission Diagnosis Patient Problems (Updated 11/08/22 @ 11:20 by Mikie Brown) Intussusception (Acute) K56.1 Small bowel obstruction, partial (Acute) K56.600 Hospital Course: Pt is a 47 year old female past medical history Hypertension, Degenerative disc disease, and Anxiety admitted for partial small bowel obstruction and acute cystitis. Her hospital/treatment course included: NG-tube, IVF D5 1/2 NS@125ml/h, IM Promethazine 25mg prn, IV Zofran prn, and Dilaudid 1mg Q4h prn for pain, Zosyn. Labs/imaging: Wbc 5.9, Hgb 10.8, Plt 213, Na 141, K 3.5, Creatinine 0.74, Glucose 85, Urine culture positive E coli. KUB: nonobstructive abdominal bowel gas pattern. Pt responded well to treatments. NG-Tube removed and diet gradually advanced. Pt discharged in stable condition. Rx keflex for cystitis. Pt instructed to follow up with pcp in 1 week. Vital Signs: Vital Signs (72 hours) 11/05/22 16:22 11/05/22 16:57 11/05/22 17:27 Temperature 98.7 F Pulse Rate 69 Pulse Rate [Left Radial] Respiratory Rate 16 18 18 Blood Pressure 138/85 Blood Pressure [Left Arm] Blood Pressure [Right Arm] O2 Sat by Pulse Oximetry 100 Oxygen Delivery Method Room Air 11/05/22 17:39 11/05/22 18:09 11/05/22 16:20 Temperature Pulse Rate Pulse Rate [Left Radial] Respiratory Rate 18 18 Blood Pressure Blood Pressure [Left Arm] 138/85 Blood Pressure [Right Arm] O2 Sat by Pulse Oximetry Oxygen Delivery Method 11/05/22 19:10 11/05/22 16:58 11/05/22 17:00 Temperature Pulse Rate Pulse Rate [Left Radial] Respiratory Rate Blood Pressure Blood Pressure [Left Arm] 176/119 171/106 170/106 Blood Pressure [Right Arm] O2 Sat by Pulse Oximetry Oxygen Delivery Method 11/05/22 19:57 11/05/22 18:48 11/05/22 18:50 Temperature Pulse Rate Pulse Rate [Left Radial] Respiratory Rate Blood Pressure Blood Pressure [Left Arm] 167/106 179/110 176/115 Blood Pressure [Right Arm] O2 Sat by Pulse Oximetry Oxygen Delivery Method 11/05/22 19:00 11/05/22 19:20 11/05/22 19:29 Temperature Pulse Rate Pulse Rate [Left Radial] Respiratory Rate Blood Pressure Blood Pressure [Left Arm] 176/110 174/119 161/116 Blood Pressure [Right Arm] O2 Sat by Pulse Oximetry Oxygen Delivery Method 11/05/22 19:40 11/05/22 19:51 11/05/22 19:10 Temperature Pulse Rate Pulse Rate [Left Radial] Respiratory Rate Blood Pressure 176/119 Blood Pressure [Left Arm] 166/110 180/100 Blood Pressure [Right Arm] O2 Sat by Pulse Oximetry Oxygen Delivery Method 11/05/22 19:20 11/05/22 19:29 11/05/22 19:30 Temperature Pulse Rate Pulse Rate [Left Radial] Respiratory Rate Blood Pressure 174/119 161/116 166/111 Blood Pressure [Left Arm] Blood Pressure [Right Arm] O2 Sat by Pulse Oximetry Oxygen Delivery Method 11/05/22 19:40 11/05/22 19:42 11/05/22 19:51 Temperature Pulse Rate Pulse Rate [Left Radial] Respiratory Rate Blood Pressure 166/110 175/116 180/100 Blood Pressure [Left Arm] Blood Pressure [Right Arm] O2 Sat by Pulse Oximetry Oxygen Delivery Method 11/05/22 20:00 11/05/22 20:11 11/05/22 20:00 Temperature 97.5 F L Pulse Rate Pulse Rate [Left Radial] 62 Respiratory Rate 21 Blood Pressure 172/92 148/89 Blood Pressure [Left Arm] Blood Pressure [Right Arm] 187/92 O2 Sat by Pulse Oximetry 100 Oxygen Delivery Method Room Air 11/05/22 21:06 11/05/22 21:20 11/05/22 21:50 Temperature Pulse Rate Pulse Rate [Left Radial] Respiratory Rate 21 21 Blood Pressure Blood Pressure [Left Arm] Blood Pressure [Right Arm] 185/90 O2 Sat by Pulse Oximetry Oxygen Delivery Method 11/05/22 21:58 11/05/22 22:15 11/05/22 22:30 Temperature Pulse Rate Pulse Rate [Left Radial] Respiratory Rate Blood Pressure Blood Pressure [Left Arm] Blood Pressure [Right Arm] 182/88 171/91 170/85 O2 Sat by Pulse Oximetry Oxygen Delivery Method 11/05/22 22:45 11/05/22 23:00 11/05/22 23:40 Temperature 97.6 F Pulse Rate Pulse Rate [Left Radial] 99 H Respiratory Rate 21 Blood Pressure Blood Pressure [Left Arm] Blood Pressure [Right Arm] 165/82 165/83 172/93 O2 Sat by Pulse Oximetry 98 Oxygen Delivery Method Room Air 11/05/22 23:42 11/06/22 01:00 11/06/22 01:30 Temperature Pulse Rate Pulse Rate [Left Radial] Respiratory Rate 21 21 Blood Pressure Blood Pressure [Left Arm] 162/89 Blood Pressure [Right Arm] O2 Sat by Pulse Oximetry Oxygen Delivery Method 11/05/22 20:35 11/06/22 04:00 11/06/22 06:03 Temperature 98.8 F Pulse Rate Pulse Rate [Left Radial] 78 Respiratory Rate 20 21 Blood Pressure Blood Pressure [Left Arm] Blood Pressure [Right Arm] 178/82 O2 Sat by Pulse Oximetry 100 Oxygen Delivery Method Room Air Room Air 11/06/22 06:33 11/06/22 09:41 11/06/22 08:00 Temperature 99.8 F H Pulse Rate Pulse Rate [Left Radial] 71 Respiratory Rate 21 20 Blood Pressure Blood Pressure [Left Arm] Blood Pressure [Right Arm] 175/99 O2 Sat by Pulse Oximetry 100 Oxygen Delivery Method Room Air Room Air 11/06/22 09:15 11/06/22 12:32 11/06/22 13:02 Temperature Pulse Rate Pulse Rate [Left Radial] Respiratory Rate 20 20 Blood Pressure Blood Pressure [Left Arm] Blood Pressure [Right Arm] 160/90 O2 Sat by Pulse Oximetry Oxygen Delivery Method 11/06/22 17:29 11/06/22 18:56 11/06/22 12:00 Temperature 99.0 F Pulse Rate Pulse Rate [Left Radial] 80 Respiratory Rate 20 20 18 Blood Pressure Blood Pressure [Left Arm] Blood Pressure [Right Arm] 183/90 O2 Sat by Pulse Oximetry 100 Oxygen Delivery Method Room Air 11/06/22 16:00 11/06/22 16:39 11/06/22 16:43 Temperature 101.1 F H Pulse Rate Pulse Rate [Left Radial] 70 69 67 Respiratory Rate 18 Blood Pressure Blood Pressure [Left Arm] Blood Pressure [Right Arm] 183/104 185/101 169/102 O2 Sat by Pulse Oximetry 100 Oxygen Delivery Method Room Air 11/06/22 16:45 11/06/22 17:22 11/06/22 17:34 Temperature Pulse Rate Pulse Rate [Left Radial] 68 Respiratory Rate Blood Pressure Blood Pressure [Left Arm] Blood Pressure [Right Arm] 176/96 186/103 169/99 O2 Sat by Pulse Oximetry Oxygen Delivery Method 11/06/22 18:27 11/06/22 21:23 11/06/22 20:00 Temperature 99.0 F 99.1 F Pulse Rate Pulse Rate [Left Radial] 84 77 Respiratory Rate 20 18 Blood Pressure Blood Pressure [Left Arm] Blood Pressure [Right Arm] 138/81 127/81 O2 Sat by Pulse Oximetry 100 Oxygen Delivery Method Room Air 11/06/22 19:00 11/06/22 21:53 11/07/22 00:00 Temperature 98.4 F Pulse Rate Pulse Rate [Left Radial] 73 Respiratory Rate 20 20 Blood Pressure Blood Pressure [Left Arm] Blood Pressure [Right Arm] 175/90 O2 Sat by Pulse Oximetry 100 Oxygen Delivery Method Room Air Room Air 11/07/22 00:41 11/07/22 01:59 11/07/22 02:29 Temperature Pulse Rate Pulse Rate [Left Radial] Respiratory Rate 20 20 Blood Pressure Blood Pressure [Left Arm] Blood Pressure [Right Arm] 172/82 O2 Sat by Pulse Oximetry Oxygen Delivery Method 11/07/22 04:00 11/07/22 05:57 11/07/22 06:26 Temperature 98.9 F Pulse Rate Pulse Rate [Left Radial] 70 Respiratory Rate 20 20 17 Blood Pressure Blood Pressure [Left Arm] Blood Pressure [Right Arm] 151/84 O2 Sat by Pulse Oximetry 98 Oxygen Delivery Method Room Air 11/07/22 07:00 11/07/22 08:00 11/07/22 12:00 Temperature 98.7 F 99.0 F Pulse Rate Pulse Rate [Left Radial] 67 71 Respiratory Rate 20 18 Blood Pressure Blood Pressure [Left Arm] Blood Pressure [Right Arm] 139/96 150/96 O2 Sat by Pulse Oximetry 100 100 Oxygen Delivery Method Room Air Room Air Room Air 11/07/22 13:24 11/07/22 13:39 11/07/22 14:39 Temperature Pulse Rate Pulse Rate [Left Radial] Respiratory Rate 15 15 Blood Pressure Blood Pressure [Left Arm] Blood Pressure [Right Arm] 132/92 O2 Sat by Pulse Oximetry Oxygen Delivery Method 11/07/22 16:14 11/07/22 16:00 11/07/22 17:20 Temperature 99.0 F Pulse Rate Pulse Rate [Left Radial] 85 Respiratory Rate 15 20 Blood Pressure Blood Pressure [Left Arm] Blood Pressure [Right Arm] 163/95 125/75 O2 Sat by Pulse Oximetry 100 Oxygen Delivery Method Room Air 11/07/22 16:44 11/07/22 19:00 11/07/22 20:00 Temperature 98.2 F Pulse Rate Pulse Rate [Left Radial] 73 Respiratory Rate 15 22 Blood Pressure Blood Pressure [Left Arm] Blood Pressure [Right Arm] 142/87 O2 Sat by Pulse Oximetry 99 Oxygen Delivery Method Room Air Room Air 11/07/22 22:49 11/07/22 23:19 11/08/22 00:00 Temperature 98.2 F Pulse Rate Pulse Rate [Left Radial] 76 Respiratory Rate 16 17 20 Blood Pressure Blood Pressure [Left Arm] Blood Pressure [Right Arm] 133/76 O2 Sat by Pulse Oximetry 100 Oxygen Delivery Method Room Air 11/08/22 04:32 11/08/22 04:00 11/08/22 05:01 Temperature 98.6 F Pulse Rate Pulse Rate [Left Radial] 72 Respiratory Rate 17 18 17 Blood Pressure Blood Pressure [Left Arm] Blood Pressure [Right Arm] 118/74 O2 Sat by Pulse Oximetry 98 Oxygen Delivery Method Room Air 11/08/22 07:00 11/08/22 08:18 Temperature Pulse Rate Pulse Rate [Left Radial] Respiratory Rate 18 Blood Pressure Blood Pressure [Left Arm] Blood Pressure [Right Arm] O2 Sat by Pulse Oximetry Oxygen Delivery Method Room Air Labs: Laboratory Last Values WBC 5.9 X10^3/uL (3.6-10.0) 11/08/22 05:47 RBC 3.92 X10^6/uL (3.5-5.4) 11/08/22 05:47 Hgb 10.8 g/dL (12.0-16.0) L 11/08/22 05:47 Hct 32.6 % (36.0-47.0) L 11/08/22 05:47 MCV 83.1 fL (80.0-100.0) 11/08/22 05:47 MCH 27.5 pg (27.0-34.0) 11/08/22 05:47 MCHC 33.1 g/dL (33.0-35.0) 11/08/22 05:47 RDW 15.0 % (11.6-16.5) 11/08/22 05:47 Plt Count 213 X10^3/uL (150.0-450.0) 11/08/22 05:47 MPV 8.3 fL (7.4-11.0) 11/08/22 05:47 Neut % (Auto) 48.9 % (42.0-75.0) 11/08/22 05:47 Lymph % (Auto) 36.7 % (21.0-51.0) 11/08/22 05:47 [place] % (Auto) 11.4 % (0.0-13.0) 11/08/22 05:47 Eos % (Auto) 2.6 % (0.9-2.9) 11/08/22 05:47 Baso % (Auto) 0.4 % (0.2-1.0) 11/08/22 05:47 Neut # (Auto) 2.9 x10^3/uL (2.2-4.8) 11/08/22 05:47 Lymph # (Auto) 2.2 X10^3/uL (1.3-2.9) 11/08/22 05:47 [place] # (Auto) 0.7 x10^3/uL (0.3-0.8) 11/08/22 05:47 Eos # (Auto) 0.2 x10^3/uL (0.0-0.2) 11/08/22 05:47 Baso # (Auto) 0.0 X10^3/uL (0.0-0.1) 11/08/22 05:47 Absolute Nucleated RBC 0.1 /100WBC 11/08/22 05:47 Sodium 141 mmol/L (136-145) 11/08/22 05:47 Corrected Sodium TNP 11/08/22 05:47 Potassium 3.5 mmol/L (3.5-5.1) 11/08/22 05:47 Chloride 107 mmol/L (98-107) 11/08/22 05:47 Carbon Dioxide 27.4 mmol/L (21-32) 11/08/22 05:47 BUN 5 mg/dL (7-18) L 11/08/22 05:47 Creatinine 0.74 mg/dL (0.55-1.02) 11/08/22 05:47 Est GFR (MDRD) Af Amer > 60 (>60) 11/08/22 05:47 Est GFR (MDRD) Non-Af > 60 (>60) 11/08/22 05:47 Glucose 85 mg/dL (65-99) 11/08/22 05:47 Calcium 8.5 mg/dL (8.5-10.1) 11/08/22 05:47 Corrected Calcium 9.2 mg/dL (8.5-10.1) 11/08/22 05:47 Magnesium 2.0 mg/dL (2.0-2.9) 11/08/22 05:47 Total Bilirubin 0.20 mg/dL (0.2-1.0) 11/08/22 05:47 AST 26 Units/L (15-37) 11/08/22 05:47 ALT 33 Units/L (12-78) 11/08/22 05:47 Alkaline Phosphatase 118 Units/L (46-116) H 11/08/22 05:47 Total Protein 5.8 g/dL (6.4-8.2) L 11/08/22 05:47 Albumin 3.1 g/dL (3.4-5.0) L 11/08/22 05:47 Globulin 2.7 g/dL (2.5-4.5) 11/08/22 05:47 Albumin/Globulin Ratio 1.1 Ratio (1.1-2.1) 11/08/22 05:47 Lipase 54 Units/L (73-393) L 11/05/22 17:17 Specimen Type Clean catch urine 11/05/22 19:30 Urine Color Pale yellow (YELLOW) 11/05/22 19:30 Urine Appearance Slightly hazy (CLEAR) 11/05/22 19:30 Urine pH 7.0 (5.0 - 8.0) 11/05/22 19:30 Ur Specific [place] 1.015 (1.000-1.030) 11/05/22 19:30 Urine Protein Negative (NEGATIVE) 11/05/22 19:30 Urine Glucose (UA) Negative (NEGATIVE) 11/05/22 19:30 Urine Ketones Negative (NEGATIVE) 11/05/22 19:30 Urine Blood Negative (NEGATIVE) 11/05/22 19:30 Urine Nitrite Positive (NEGATIVE) 11/05/22 19:30 Urine Bilirubin Negative (NEGATIVE) 11/05/22 19:30 Urine Urobilinogen Normal (NORMAL) 11/05/22 19:30 Ur Leukocyte Esterase Negative (NEGATIVE) 11/05/22 19:30 Urine RBC None seen /HPF (0-3) 11/05/22 19:30 Urine WBC None seen /HPF (0-5) 11/05/22 19:30 Ur Squamous Epith Cells Rare /HPF (NEGATIVE) 11/05/22 19:30 Urine Bacteria 4+ /HPF (NEGATIVE) 11/05/22 19:30 Ur Culture Indicated? Yes/culture set up 11/05/22 19:30 Reason For Visit: INTUSSUSCEPTION, PARTIAL SMALL BOWEL OBSTRUCTION Discharge Diagnosis All Active Problems (Updated 11/08/22 @ 11:20 by Mikie Brown) Constipation (Acute) Intussusception (Acute) Small bowel obstruction, partial (Acute) Left ankle pain (Acute) Chest pain (Acute) Gastroenteritis (Acute) Vomiting (Acute) Diarrhea (Acute) Abdominal pain (Acute) Campylobacter diarrhea (Acute) Strain of hand, left (Acute) Otitis media (Acute) UTI (urinary tract infection) (Acute) Plan of Treatment: Continue with present treatment and follow up plan. Pt is to keep follow up appointment as instructed and take medications as ordered. Discharge Medications Discharge Medications: lisinopril Allergy (Verified 11/05/22 18:16) antihemophilic factor (FVIII) rec, full length Adverse Reaction (Verified 05/27/21 12:50) Antihistamines - Alkylamine Adverse Reaction (Verified 05/27/21 12:50) Antihistamine & Nasal Deconges Allergy (Unknown, Uncoded 09/12/20 09:12) CONTINUE taking the following medications alprazolam 0.5 mg tablet 0.5 mg PO BID PRN 11/05/22 [History] amlodipine 5 mg tablet 5 mg PO QDAY 11/05/22 [History] uicdkoq-yftctwyugi-TRJ-caffeine 30 mg-50 mg-325 mg-40 mg capsule (Ascomp with Codeine) 1 cap PO QDAY PRN 11/05/22 [History] cyclobenzaprine 10 mg tablet 10 mg PO BID PRN 11/05/22 [History] fluticasone propionate 50 mcg/actuation nasal spray,suspension 1 ea intranasal DAILY 11/05/22 [History] gabapentin 300 mg capsule 300 mg PO QDAY 11/05/22 [History] naproxen 500 mg tablet 500 mg PO BID 11/05/22 [History] oxycodone-acetaminophen 10 mg-325 mg tablet 1 tab PO TID PRN 11/05/22 [History] sertraline 100 mg tablet 100 mg PO BID 11/05/22 [History] Discharge Disposition Discharge Disposition: Home Discharge Condition: Stable Discharge Plan Discharge Plan Hospital Course: Pt is a 47 year old female past medical history Hypertension, Degenerative disc disease, and Anxiety admitted for partial small bowel obstruction and acute cystitis. Her hospital/treatment course included: NG-tube, IVF D5 1/2 NS@125ml/h, IM Promethazine 25mg prn, IV Zofran prn, and Dilaudid 1mg Q4h prn for pain, Zosyn. Labs/imaging: Wbc 5.9, Hgb 10.8, Plt 213, Na 141, K 3.5, Creatinine 0.74, Glucose 85, Urine culture positive E coli. KUB: nonobstructive abdominal bowel gas pattern. Pt responded well to treatments. NG-Tube removed and diet gradually advanced. Pt discharged in stable condition. Rx keflex for cystitis. Pt instructed to follow up with pcp in 1 week. Patient Disposition: 01 HOME, SELF-CARE Condition: Stable Health Concerns: Post Hospitalization: new medications and changes needed to prevent readmission or further decline. Pt educated and given instructions on all concerns. Care Plan Goals: Problem: Pain/Alteration in Comfort Goal: Improve/ Resolve Pain; Achieve Pain Tolerance Instructions: Take pain medications as prescribed. Contact your primary care provider if your pain is unrelieved or worsens. Follow up with primary care provider as directed. Plan of Treatment: Continue with present treatment and follow up plan. Pt is to keep follow up appointment as instructed and take medications as ordered. Prescriptions: New cephalexin 500 mg capsule 500 mg PO BID 7 Days Qty: 14 0RF dicyclomine 10 mg capsule 10 mg PO TID 10 Days Qty: 30 0RF docusate sodium [Colace] 100 mg capsule 100 mg PO BID 15 Days Qty: 30 0RF promethazine 25 mg tablet 25 mg PO TID PRN30 Days Qty: 30 2RF Continued cyclobenzaprine 10 mg tablet 10 mg PO BID PRN sertraline 100 mg tablet 100 mg PO BID amlodipine 5 mg tablet 5 mg PO QDAY alprazolam 0.5 mg tablet 0.5 mg PO BID PRN oxycodone-acetaminophen 10-325 mg tablet 1 tab PO TID PRN [id number] [Ascomp with Codeine] 52-33-220-40 mg capsule 1 cap PO QDAY PRN gabapentin 300 mg capsule 300 mg PO QDAY fluticasone propionate 50 mcg/actuation spray,suspension 1 ea INTRANASAL DAILY Label Comments: [NO ORIGINAL SIG] naproxen 500 mg tablet 500 mg PO BID No Action promethazine 6.25 mg/5 mL syrup 12.5 mg PO TID MDD 3 PRN (Reason: nausea) Qty: 120 0RF Rx Instructions: D/C tablets Follow ups/Referrals Follow ups/Referrals: Mikie Brown [Primary Care Provider] - 11/15/22 9:40 am JUDE DEJESUS [STAFF PHYSICIAN] - 11/26/22 3:00 pm Instructions Instructions: Soft-Food Eating Plan, Small Bowel Obstruction, E. Coli Infection Stand Alone Forms: Excuse From Work or School
== END 2022-11-08 14:30 | disposition home or self-care (01) | DRG 389 ==
LOC: ER 16:20 → MED/SURG 19:26
PROVIDERS: ADMIT Internal Medicine; ATTEND Family Medicine
DX: R11.2 Nausea with vomiting, unspecified; N30.00 Acute cystitis without hematuria; B96.29 Other Escherichia coli [E. coli] as the cause of diseases classified elsewhere; K56.609 Unspecified intestinal obstruction, unspecified as to partial versus complete obstruction; K59.09 Other constipation; F41.8 Other specified anxiety disorders; K56.1 Intussusception; R10.84 Generalized abdominal pain; I10 Essential (primary) hypertension